=== PATIENT | female | born 1945 | race African-American/Black ===

== ENCOUNTER 2019-09-15 01:36 | Inpatient (IN) | payer OTHER ==
[~2019-09-15] VITALS: Ht 170.2 cm; Wt 64.9 kg
[2019-09-15 02:46] LABS: BASOPHIL % 0.3 % (0-2); PLATELET COUNT 227 x10^3mcL (130-400); RED CELL DISTRIBUTION WIDTH 15.3 % (11.5-14.5)
[2019-09-15 03:02] LABS: ALKALINE PHOSPHATASE 89 U/L (46-116); ALT/SGPT 34 U/L (14-59); AST/SGOT 57 U/L (15-37); BILIRUBIN TOTAL 0.8 mg/dL (0.20-1.00); CARBON DIOXIDE 20.8 mmol/L (21-32); CHLORIDE SERUM 104 mmol/L (98-107); CREATININE SERUM 1.4 mg/dL (0.6-1.0); GLUCOSE SERUM 205 mg/dL (74-106); SODIUM SERUM 145 mmol/L (136-145)
[2019-09-15 03:05] LABS: ALBUMIN 3.2 g/dL (3.4-5.0)
[2019-09-15 03:06] LABS: POTASSIUM SERUM 2.6 mmol/L (3.5-5.1)
[2019-09-15] MEDS ORDERED: CARVEDILOL12.5 M1 PO (03:34)
[2019-09-15] MEDS ORDERED: AMIODARONE200 MG (03:34)
[2019-09-15] MEDS ORDERED: LASIX20 MG PO (03:34)
[2019-09-15] MEDS ORDERED: IBUPROFEN400 MG PO (03:35)
[2019-09-15] MEDS ORDERED: NORCO1 TA2 (03:35)
[2019-09-15] MEDS ORDERED: NATURAL IRON65 MG (03:35)
[2019-09-15 04:17] VITALS: BP 149/93
[2019-09-15 05:35] LABS: PLATELET COUNT 212 x10^3mcL (130-400)
[2019-09-15 05:41] LABS: BASOPHIL % 0 % (0-2); RED CELL DISTRIBUTION WIDTH 15.2 % (11.5-14.5)
[2019-09-15 05:43] LABS: CALCIUM 8.5 mg/dL (8.5-10.1); CARBON DIOXIDE 27.8 mmol/L (21-32); CHLORIDE SERUM 103 mmol/L (98-107); CREATININE SERUM 1.3 mg/dL (0.6-1.0); GLUCOSE SERUM 114 mg/dL (74-106); SODIUM SERUM 143 mmol/L (136-145)
[2019-09-15 05:50] LABS: POTASSIUM SERUM 2.8 mmol/L (3.5-5.1)
[2019-09-15 08:00] VITALS: BP 128/81
[2019-09-15 09:07] VITALS: Ht 170.2 cm; Wt 64.9 kg
[2019-09-15 12:07] VITALS: BP 120/80
[2019-09-15 15:00] VITALS: BP 127/82
[2019-09-15 16:29] LABS: CALCIUM 8.1 mg/dL (8.5-10.1); CHLORIDE SERUM 103 mmol/L (98-107); CREATININE SERUM 1.2 mg/dL (0.6-1.0); GLUCOSE SERUM 100 mg/dL (74-106); POTASSIUM SERUM 3.3 mmol/L (3.5-5.1); SODIUM SERUM 142 mmol/L (136-145)
[2019-09-15 21:16] VITALS: BP 113/68
[2019-09-16 05:22] VITALS: BP 102/60
[2019-09-16 06:11] LABS: BASOPHIL % 0.3 % (0-2); PLATELET COUNT 186 x10^3mcL (130-400)
[2019-09-16 06:27] LABS: CALCIUM 7.8 mg/dL (8.5-10.1); CARBON DIOXIDE 30.3 mmol/L (21-32); CHLORIDE SERUM 104 mmol/L (98-107); CREATININE SERUM 1.1 mg/dL (0.6-1.0); GLUCOSE SERUM 95 mg/dL (74-106); MAGNESIUM 1.8 mg/dL (1.8-2.4); PHOSPHOROUS 3.7 mg/dL (2.5-4.9); POTASSIUM SERUM 3.4 mmol/L (3.5-5.1); SODIUM SERUM 143 mmol/L (136-145)
[2019-09-16 08:03] VITALS: BP 109/64
[2019-09-16 13:24] VITALS: BP 96/52
[2019-09-16 15:59] VITALS: BP 104/62
[2019-09-16 20:13] VITALS: BP 96/58
[2019-09-17 05:44] VITALS: BP 121/66
[2019-09-17 06:29] LABS: BASOPHIL % 0.3 % (0-2); PLATELET COUNT 177 x10^3mcL (130-400)
[2019-09-17 06:39] LABS: RED CELL DISTRIBUTION WIDTH 15.3 % (11.5-14.5)
[2019-09-17 06:43] LABS: CALCIUM 8.3 mg/dL (8.5-10.1); CARBON DIOXIDE 29.9 mmol/L (21-32); CHLORIDE SERUM 103 mmol/L (98-107); CREATININE SERUM 1.3 mg/dL (0.6-1.0); GLUCOSE SERUM 97 mg/dL (74-106); MAGNESIUM 1.7 mg/dL (1.8-2.4); PHOSPHOROUS 3.4 mg/dL (2.5-4.9); POTASSIUM SERUM 4.1 mmol/L (3.5-5.1); SODIUM SERUM 141 mmol/L (136-145)
[2019-09-17 08:29] VITALS: BP 115/67
[2019-09-17 16:14] VITALS: BP 129/70
[2019-09-17 20:06] VITALS: BP 102/61
[2019-09-18 06:14] VITALS: BP 110/62
[2019-09-18 06:33] LABS: BASOPHIL % 0.5 % (0-2)
[2019-09-18 06:42] LABS: CALCIUM 8.6 mg/dL (8.5-10.1); CARBON DIOXIDE 28.6 mmol/L (21-32); CHLORIDE SERUM 100 mmol/L (98-107); CREATININE SERUM 1.2 mg/dL (0.6-1.0); GLUCOSE SERUM 86 mg/dL (74-106); MAGNESIUM 1.7 mg/dL (1.8-2.4); PHOSPHOROUS 4.1 mg/dL (2.5-4.9); SODIUM SERUM 137 mmol/L (136-145)
[2019-09-18 08:58] VITALS: BP 134/80
[2019-09-18 12:07] VITALS: BP 130/66
[2019-09-18 13:20] LABS: RED CELL DISTRIBUTION WIDTH 15.1 % (11.5-14.5)
[2019-09-18 13:23] LABS: PLATELET COUNT 175 x10^3mcL (130-400)
[2019-09-18 14:56] VITALS: BP 130/66
[2019-09-18 17:50] VITALS: BP 125/72
[2019-09-18 22:35] VITALS: BP 121/64
[2019-09-19 06:31] LABS: BASOPHIL % 0.4 % (0-2); PLATELET COUNT 185 x10^3mcL (130-400)
[2019-09-19 06:41] LABS: RED CELL DISTRIBUTION WIDTH 14.6 % (11.5-14.5)
[2019-09-19 06:44] LABS: CALCIUM 8.9 mg/dL (8.5-10.1); CARBON DIOXIDE 30.4 mmol/L (21-32); CHLORIDE SERUM 99 mmol/L (98-107); CREATININE SERUM 1.3 mg/dL (0.6-1.0); GLUCOSE SERUM 84 mg/dL (74-106); MAGNESIUM 1.8 mg/dL (1.8-2.4); PHOSPHOROUS 4.7 mg/dL (2.5-4.9); POTASSIUM SERUM 4.4 mmol/L (3.5-5.1); SODIUM SERUM 137 mmol/L (136-145)
[2019-09-19 06:57] VITALS: BP 111/62
[2019-09-19 09:00] VITALS: BP 127/70
[2019-09-19 13:20] VITALS: BP 108/59
[2019-09-19 16:46] VITALS: BP 123/67
[2019-09-19] MEDS ORDERED: LASIX40 MG PO (17:11)
[2019-09-19] MEDS ORDERED: CARVEDILOL3.125 M1 PO (17:13)
[2019-09-19] MEDS ORDERED: LISINOPRIL2.5 MG PO (17:14)
[2019-09-19] MEDS ORDERED: GOOD SENSE ASPI81 M3 PO (17:15)
[2019-09-19 18:48] VITALS: BP 123/67
== END 2019-09-19 19:22 | disposition home or self-care (01) | DRG 177 ==
LOC: ED 01:36 → IC 03:27 → DU 03:27 → IC 03:50 → DU 18:34
PROVIDERS: Emergency Medicine; ADMIT Internal Medicine
DX: J69.0 Pneumonitis due to inhalation of food and vomit (principal); J96.01 Acute respiratory failure with hypoxia; I50.23 Acute on chronic systolic (congestive) heart failure; I21.A1 Myocardial infarction type 2; N17.0 Acute kidney failure with tubular necrosis; E87.2 Acidosis; I42.8 Other cardiomyopathies; I31.3 Pericardial effusion (noninflammatory); I11.0 Hypertensive heart disease with heart failure; I48.0 Paroxysmal atrial fibrillation; S42.202D Unspecified fracture of upper end of left humerus, subsequent encounter for fracture with routine healing; E87.6 Hypokalemia; Z95.810 Presence of automatic (implantable) cardiac defibrillator; Z79.891 Long term (current) use of opiate analgesic; Z79.1 Long term (current) use of non-steroidal anti-inflammatories (NSAID); Z68.22 Body mass index [BMI] 22.0-22.9, adult; X58.XXXD Exposure to other specified factors, subsequent encounter
CPT/HCPCS: 36600; 83880; 85378; 87046; 87046-59; 97116-GP; 97530-GP; G0378; J1940; J2270; J2405; J2543; J3475; J3480; J7040; J7620; Q0092; Q9967